=== PATIENT | female | born 1970 | race Caucasian/White ===

== ENCOUNTER 2023-11-09 12:37 | Outpatient (REF) | payer BC, SELFPAY ==
--- NOTE | ~2023-11-09 | XR_ITS ---
EXAMINATION: XR KNEE, RIGHT CLINICAL INFORMATION: Unilateral primary osteoarthritis. COMPARISON: None available. TECHNIQUE: Single standing view of both knees with 2 additional views of the right knee. FINDINGS: There is mild narrowing in the medial compartment on the right. No significant narrowing is seen on the left. A small to moderate-sized right joint effusion is seen. No chondrocalcinosis, fractures or dislocations. XR/XR knee RT 3V IMPRESSION: Mild narrowing of the medial compartment of the right knee, with small to moderate-sized joint effusion.
== END 2023-11-09 12:38 | disposition home or self-care (01) ==
LOC: HO.HOSX 12:37
PROVIDERS: Visit Provider Physician Assistant
DX: M17.11 Unilateral primary osteoarthritis, right knee (principal)
CPT/HCPCS: 73562

== ENCOUNTER 2023-11-09 14:06 | Outpatient (AMB) | payer BC, SELFPAY ==
--- NOTE | 2023-11-09 14:23 | A.OFFVIS_ITS ---
Intake Intake Visit Reasons: New Patient - Right Knee Pain Intake Note: Pt is a 53 year old female who presents to the office today for a new patient visit for right knee pain. Pt states the pain started in August 2023 with no known injury. She states in September the pain worsened. She states the pain is in her knee only but states that sometimes if the pain is bad enough then she will start getting pain up the back of her leg. Pt states occasionally she will have swelling in her knee and when its painful she is unable to bend her leg. Pt state she has tried ice and heat with minimal relief. Pt denies any previous knee surgeries or injections. Allergies No Known Allergies Allergy (Verified 11/09/23 14:24) HPI New Patient - Right Knee Pain HPI Details 53-year-old female who presents to the o ffice today for evaluation of right knee pain since August 2023 which has been worsening since September. She states she has pain, tightness, and pulling sensation in her knee which occasionally radiates up to her leg. She also experiences occasional swelling in her knee which makes her unable to bend her leg. Her pain is aggravated with going downstairs. She has tried icing, heating, and Aleve with minimal relief. She denies any previous knee surgeries or injections. Review of Systems Const All systems reviewed & are unremarkable except as noted in HPI and below Physical Exam Const General: cooperative, healthy appearing, comfortable, no acute distress, well developed and alert Orientation/consciousness: patient oriented x3 HEENT Head: Yes normal to inspection, Yes normocephalic and Yes atraumatic Eyes General: appearance normal, both eyes and all related structures Resp Effort & Inspection: normal respiratory effort and able to speak in complete sentences Cardio Rate: regular rate Peripheral pulses: Peripheral pulses 2+ throughout GI Palpation (GI): Soft to palpation Skin Lesions: no lesions Rashes: no rashes Neuro General: patient oriented x3 Extrem Other: .Right knee: Skin intact, no erythema or joint effusion. Tenderness along the medial joint line. Full ROM with crepitus. Positive Andra?s. No ligamentous laxity. NVI. Office Procedures Joint Injection/Drain Joint Injection/Drain Details: No injection given Coding Additional procedure code (CPT) needed Results Reviewed Results Reviewed: Xrays were obtained in the office today and personally reviewed by me of the left knee show pf oa Assessment & Plan Assessment & Plan (1) Osteoarthritis of left knee: Code(s): M17.12 - Unilateral primary osteoarthritis, left knee Qualifiers: Osteoarthritis type: primary Qualified Code(s): M17.12 - Unilateral primary osteoarthritis, left knee Plan We discussed options which include anti-inflammatories and an MRI to further evaluate the meniscus. We also discussed steroid injection which she would like to hold off on however if symptoms persist or worsens, patient will contact the office to proceed with the injection, otherwise follow-up as needed. No injection given at todays appt Orders: Orders XR knee RT 3V Today M17.11 - Unilateral primary osteoarthritis, right knee MR knee RT wo con Today M17.11 - Unilateral primary osteoarthritis, right knee Patient Instructions: Scribed for Wendi Wei PA-C, by Salvatore Torres medical staff director, on 11/09/2023 at 2:15 PM EST. IWendi PA-C, have personally reviewed and agree with the information entered by the scribe. Coding Level of Care Code New Pt Level 3 (04509) Diagnoses Primary osteoarthritis of left knee M17.12 Osteoarthritis type: primary
== END 2023-11-09 15:39 | disposition home or self-care (01) ==
LOC: HO.HOS 14:06
PROVIDERS: PCP Nurse Practitioner Family; Visit Provider Physician Assistant
DX: M17.12 Unilateral primary osteoarthritis, left knee (principal)
CPT/HCPCS: 99203

== ENCOUNTER 2023-12-02 19:27 | Outpatient (REF) | payer BC, SELFPAY ==
--- NOTE | ~2023-12-02 | MR_ITS ---
EXAMINATION: MR KNEE WITHOUT CONTRAST, RIGHT CLINICAL INFORMATION: Osteoarthritis right knee. COMPARISON: X-rays of the right knee 11/09/2023. TECHNIQUE: MRI of the knee without contrast was performed using routine sequences on a high-field scanner. FINDINGS: MENISCI: Medial Meniscus: There is blunting of the body of the medial meniscus with a meniscal fragment appearing partially detached and extending into the meniscal femoral recess. The fragment measures 10 mm AP, 7 mm craniocaudal and 3 mm transverse. Lateral Meniscus: Intact LIGAMENTS: Cruciate: Intact Collateral: Intact EXTENSOR MECHANISM: Intact ARTICULAR CARTILAGE/BONE: Patellofemoral Compartment: Minimal cartilage heterogeneity of the medial facet of the patella. Trochlear cartilage normal. Medial Compartment: Normal Lateral Compartment: Normal Proximal tibiofibular joint: Minimal subchondral cystic change on the tibial side indicative of mild arthrosis. JOINT FLUID AND BURSAE: There is a mild joint effusion. MR/MR knee RT wo con IMPRESSION: 1. Tear of the body of the medial meniscus with a partially detached meniscal fragment extending into the meniscal femoral recess. 2. Mild arthrosis of the proximal tibiofibular joint. 3. Minimal patellofemoral arthrosis. 4. Mild joint effusion.
== END 2023-12-02 19:28 | disposition home or self-care (01) ==
LOC: HO.MRI 19:27
PROVIDERS: PCP Nurse Practitioner Family; Visit Provider Physician Assistant
DX: M17.11 Unilateral primary osteoarthritis, right knee (principal)
CPT/HCPCS: 73721

== ENCOUNTER 2024-01-15 11:15 | Outpatient (AMB) | payer BC, SELFPAY ==
--- NOTE | 2024-01-15 11:58 | A.OFFVIS_ITS ---
Intake Visit Reasons: OV-right knee MRI review Intake Note: Samanta is a 53 year old female who presents today for an MRI review of the right knee. denies injury. IMPRESSION: 1. Tear of the body of the medial meniscus with a partially detached meniscal fragment extending into the meniscal femoral recess. 2. Mild arthrosis of the proximal tibiofibular joint. 3. Minimal patellofemoral arthrosis. 4. Mild joint effusion. Allergies No Known Allergies Allergy (Verified 11/09/23 14:24) HPI HPI OV-right knee MRI review: Details: Samanta comes in today for right knee MRI review. Mirian has had pain since August 2023 which has been worsening since September. She states she has pain, tightness, and pulling sensation in her knee which occasionally radiates up to her leg. She also experiences occasional swelling in her knee which makes her unable to bend her leg. Her pain is aggravated with going downstairs.It is, however, improving of late and today she has minimal pa in. Physical Exam Extrem Other: FUll ROM right knee Neg Steinmen's Mild medial joint line TTP Results Reviewed Results Reviewed: I personally reviewed the MR images. Tear of the body of the medial meniscus with a partially detached meniscal fragment extending into the meniscal femoral recess. 2. Mild arthrosis of the proximal tibiofibular joint. 3. Minimal patellofemoral arthrosis. 4. Mild joint effusion. 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 Her symptoms have almost disappeared and I recommend continued activity as tolerated. I discussed both surgical and non surgical options. If her symptoms return she may return to see me. Coding Level of Care Code Est Pt Level 4 (86277) Diagnoses Degenerative tear of medial meniscus of right knee M23.203
== END 2024-01-15 12:09 | disposition home or self-care (01) ==
PROVIDERS: PCP Nurse Practitioner Family; Visit Provider Orthopaedic Surgery
DX: M23.203 Derangement of unspecified medial meniscus due to old tear or injury, right knee (principal)
CPT/HCPCS: 99214

== ENCOUNTER → 2024-01-15 11:15 | Outpatient (BNVA) | payer BC, SELFPAY | PROVIDERS: PCP Nurse Practitioner Family; Visit Provider Orthopaedic Surgery ==